=== PATIENT | female | born 1990 | race Hispanic/Latino ===

== ENCOUNTER 2018-01-13 09:42 | Emergency (ER) | payer SELFPAY ==
[2018-01-13 10:02] VITALS: TEMP 98
[2018-01-13] MEDS ORDERED: predniSONE 20 MG TAB PO ONE (10:13)
[2018-01-13] MEDS ORDERED: AZITHROMYCIN 250 MG TAB PO ONE (10:13)
--- NOTE | 2018-01-13 10:13 | ED.PDOC ---
History of Present Illness - General Chief Complaint: Respiratory Problem Stated Complaint: cough, congestion Time Seen by Provider: 01/13/18 10:04 Source: patient Exam Limitations: no limitations - History of Present Illness Initial Comments: the patient is a 27-year-old female presenting to emergency room secondary to cough and congestion with some ear pressure and a mild sore throat for the last 2 weeks. She reports that it started more as seasonal allergy and has developed more cold type symptoms and bronchitis type symptoms over the ensuing 2 weeks. She has had mild intermittent diarrhea. No vomiting. No chest pain. She does feel tired with exertion but no true shortness of breath. No swelling. No syncope or near syncope. On physical exam the patient does have mild scattered rhonchi bilaterally. No wheezes. Good air movement. Posterior oropharynx is mildly red. Nares are red. Tympanic membrane show significant pressure behind them but no obvious infection. Timing/Duration: unsure Severity: moderate Improving Factors: nothing Worsening Factors: nothing Associated Symptoms: cough, fever/chills, malaise Allergies/Adverse Reactions: Allergies Promethazine Allergy (Intermediate, Verified 09/06/16 00:43) Other stops breathing Home Medications: Ambulatory Orders Ondansetron HCl [Zofran] 4 mg PO Q6HR #10 tab 09/06/16 Azithromycin 500 mg PO DAILY #4 tab 01/13/18 predniSONE [Prednisone] 20 mg PO DAILY #4 tab 01/13/18 Review of Systems - Review of Systems Constitutional: States: fever, malaise EENTM: States: nose congestion, throat pain Respiratory: States: cough Cardiology: States: no symptoms reported Gastrointestinal/Abdominal: States: diarrhea - mild intermittent Genitourinary: States: no symptoms reported Musculoskeletal: States: no symptoms reported Skin: States: no symptoms reported Neurological: States: no symptoms reported Endocrine: States: no symptoms reported All other Systems: No Change from Baseline Past Medical History (General) - Patient Medical History Hx Seizures: No Hx Stroke: No Hx Dementia: No Hx Asthma: No Hx of COPD: No Hx Cardiac Disorders: No Hx Congestive Heart Failure: No Hx Pacemaker: No Hx Hypertension: No Hx Thyroid Disease: No Hx Diabetes: No Hx Gastroesophageal Reflux: No Hx Renal Disease: No Hx Cancer: No Hx of HIV: No Hx Hepatitis C: No Hx MRSA: No Surgical History: cholecystectomy, tonsillectomy, other - Vaccination History Hx Tetanus, Diphtheria Vaccination: No Hx Influenza Vaccination: No Hx Pneumococcal Vaccination: No - Social History Hx Tobacco Use: Yes Hx Alcohol Use: Yes - occ Hx Substance Use: No Hx Substance Use Treatment: No Hx Depression: No - Female History Hx Last Menstrual Period: 03/14/13 Patient : No - unsure Expected Date of Delivery:: 12/19/13 Family Medical History - Family History Mother Living Status: Still Living Hx Family Asthma: Yes Hx Family Cancer: Yes - ovarian Physical Exam - Physical Exam General Appearance: Alert, No apparent distress Eye Exam: bilateral normal Ears, Nose, Throat: nasal congestion, pharyngeal erythema - mild without exudates or abscess formation, other - bilateral tympanic membranes show increased pressure but no obviouspurulent infection behind the eardrums Neck: supple, normal inspection Respiratory: no respiratory distress, no accessory muscle use, other - mild scattered rhonchi bilaterally. 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 While this is most likely viral and contributed to by her seasonal allergy she will be covered for atypical bacterial sources given the duration of her symptoms with 5 days of oral azithromycin. The first day has been given currently here. She is also going to be placed on prednisone for the next 4 days with the first dose given now. 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 She can also poultry picking machine tender some Rhinocort and use 1 spray per nostril twice daily for the next 2 weeks. She needs to keep herself well hydrated. A dose of Motrin at night only help reduce her cough at night. ER warnings were given for any worsening. She should otherwise follow up with her primary care doctor as previously scheduled. Departure - Departure Clinical Impression: Acute bronchitis Qualifiers: Bronchitis organism: unspecified organism Qualified Code(s): J20.9 - Acute bronchitis, unspecified Disposition: Discharge to Home or Self Care Condition: Fair Departure Forms: ED Discharge - Pt. Copy, Patient Portal Self Enrollment Instructions: DI for Acute Bronchitis Diet: regular diet Activity: increase activity as tolerated Referrals: Alva Escobar FNP [Primary Care Provider] - 1-2 Weeks Prescriptions: Azithromycin 500 mg PO DAILY #4 tab predniSONE [Prednisone] 20 mg PO DAILY #4 tab Home Medications: Ambulatory Orders Ondansetron HCl [Zofran] 4 mg PO Q6HR #10 tab 09/06/16 Azithromycin 500 mg PO DAILY #4 tab 01/13/18 predniSONE [Prednisone] 20 mg PO DAILY #4 tab 01/13/18 Additional Instructions: the patient appears to have an upper respiratory tract infection including a mild bronchitis. While this is most likely viral and contributed to by her seasonal allergy she will be covered for atypical bacterial sources given the duration of her symptoms with 5 days of oral azithromycin. The first day has been given currently here. She is also going to be placed on prednisone for the next 4 days with the first dose given now. 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 She can also poultry picking machine tender some Rhinocort and use 1 spray per nostril twice daily for the next 2 weeks. She needs to keep herself well hydrated. A dose of Motrin at night only help reduce her cough at night. ER warnings were given for any worsening. She should otherwise follow up with her primary care doctor as previously scheduled.
[2018-01-13 10:30] VITALS: BP 114/81; O2SAT 100
== END 2018-01-13 10:30 | disposition home or self-care (01) ==
LOC: ER 09:42
DX: J20.9 Acute bronchitis, unspecified (principal); Z87.891 Personal history of nicotine dependence
CPT/HCPCS: J7512; Q0144